=== PATIENT | female | born 2000 | race Caucasian/White ===

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

== ENCOUNTER 2020-01-23 12:45 | Emergency (ER) | payer OTHER ==
[~2020-01-23] VITALS: Ht 152.4 cm; Wt 66.2 kg
[2020-01-23 12:59] VITALS: BP 135/93; Ht 152.4 cm; Wt 66.2 kg
== END 2020-01-23 15:46 | disposition left against medical advice (07) ==
LOC: ED 12:45
DX: Z53.21 Procedure and treatment not carried out due to patient leaving prior to being seen by health care provider (principal)

== ENCOUNTER 2020-04-19 22:28 | Emergency (ER) | payer OTHER ==
[~2020-04-19] VITALS: Ht 167.6 cm; Wt 60.3 kg
[2020-04-19 22:50] VITALS: BP 125/85; Ht 167.6 cm; Wt 60.3 kg
[2020-04-20 00:02] LABS: BASOPHIL % 0.5 % (0-2); PLATELET COUNT 155 x10^3mcL (130-400); RED CELL DISTRIBUTION WIDTH 14.1 % (11.5-14.5)
[2020-04-20 00:38] LABS: FREE T4 1.31 ng/dL (0.76-1.46); FREE THYROXINE INDEX 2.4 ug/dL (1.4-4.5); T4(THYROXINE) 7.2 ug/dL (4.7-13.3)
[2020-04-20 01:13] LABS: CARBON DIOXIDE 26.6 mmol/L (21-32); CHLORIDE SERUM 107 mmol/L (98-107); GLUCOSE SERUM 87 mg/dL (74-106); POTASSIUM SERUM 3.2 mmol/L (3.5-5.1); SODIUM SERUM 142 mmol/L (136-145)
[2020-04-20 01:14] LABS: ALKALINE PHOSPHATASE 32 U/L (46-116); ALT/SGPT 15 U/L (14-59); AST/SGOT 10 U/L (15-37); BILIRUBIN TOTAL 0.3 mg/dL (0.20-1.00); CALCIUM 8.8 mg/dL (8.5-10.1); CREATININE SERUM 0.6 mg/dL (0.6-1.0); GFR1 > 60 mL/min; TOTAL PROTEIN, SERUM 6.7 g/dL (6.4-8.2)
[2020-04-20 02:04] LABS: AMPHETAMINE QUAL UR NONE DETECTED (See below)
[2020-04-20 02:33] LABS: T3 TOTAL 1.65 ng/mL
== END 2020-04-20 03:11 | disposition left against medical advice (07) ==
LOC: ED 22:28
PROVIDERS: Emergency Medicine
DX: Z53.21 Procedure and treatment not carried out due to patient leaving prior to being seen by health care provider (principal)
CPT/HCPCS: 84439; G0480

== ENCOUNTER 2020-08-18 19:16 | Emergency (ER) | payer OTHER ==
[~2020-08-18] VITALS: Ht 157.5 cm; Wt 57.6 kg
[2020-08-18 19:44] VITALS: BP 113/77; Ht 157.5 cm; Wt 57.6 kg
[2020-08-18 20:19] LABS: BASOPHIL % 1.1 % (0.2-1.3); PLATELET COUNT 207 x10^3mcL (179-408); RED CELL DISTRIBUTION WIDTH 13.5 % (12.3-17.7)
[2020-08-18 20:22] LABS: CARBON DIOXIDE 29.2 mmol/L (21-32); CHLORIDE SERUM 102 mmol/L (98-107); CREATININE SERUM 0.5 mg/dL (0.6-1.0); GFR1 > 60 mL/min; GLUCOSE SERUM 85 mg/dL (74-106); POTASSIUM SERUM 3.3 mmol/L (3.5-5.1); SODIUM SERUM 139 mmol/L (136-145)
[2020-08-18 20:26] LABS: ALBUMIN 3.9 g/dL (3.4-5.0); ALKALINE PHOSPHATASE 34 U/L (46-116); ALT/SGPT 14 U/L (14-59); AST/SGOT 4 U/L (15-37); BILIRUBIN TOTAL 0.25 mg/dL (0.20-1.00); TOTAL PROTEIN, SERUM 7.2 g/dL (6.4-8.2)
[2020-08-18 20:48] LABS: microscopic required? NO
[2020-08-18 21:16] LABS: UA SPECIFIC GRAVITY 1.025 (1.005-1.035); urine erythrocyte NEGATIVE (NEGATIVE)
== END 2020-08-18 22:10 | disposition home or self-care (01) ==
LOC: ED 19:16
PROVIDERS: Student in an Organized Health Care Education/Training Program
DX: O26.891 Other specified pregnancy related conditions, first trimester (principal); R11.2 Nausea with vomiting, unspecified; R10.2 Pelvic and perineal pain; J45.909 Unspecified asthma, uncomplicated; Z98.890 Other specified postprocedural states; Z88.1 Allergy status to other antibiotic agents; Z88.8 Allergy status to other drugs, medicaments and biological substances; Z3A.08 8 weeks gestation of pregnancy
CPT/HCPCS: 87491; 87591; J0696